=== PATIENT | male | born 1950 | race American Indian/Alaskan Native ===

== ENCOUNTER 2017-07-14 12:54 | Inpatient (IN) | payer OTHER ==
[2017-07-14] MEDS ORDERED: Sodium Chloride 0.9% 1,000 ML IV ONE (13:15)
[2017-07-14 13:31] LABS: RBC URINE < 1 /hpf (0-3); URINE BILIRUBIN NEGATIVE (NEGATIVE); URINE BLOOD NEGATIVE (NEGATIVE); URINE COLOR Yellow (YELLOW); URINE GLUCOSE (UA) NORMAL (Normal); URINE KETONE NEGATIVE (NEGATIVE); URINE LEUKOCYTE ESTERASE 1+ Leu/uL (Negative); URINE PROTEIN NEGATIVE (NEGATIVE); URINE UROBILINOGEN NORMAL mg/dL (0.2-1.0)
[2017-07-14 13:33] LABS: WBC URINE 3 /hpf (0-5)
[2017-07-14 13:36] LABS: BASO # 0.1 K/uL (0.0-0.2); BASO % 1.4 % (0.0-2.0); EOS # 0.1 K/uL (0.0-0.7); EOS % 2.3 % (0.0-4.0); HEMATOCRIT 37.2 % (35.0-51.0); LYMPH # 0.8 K/uL (1.0-4.3); LYMPH % 17.8 % (20.0-40.0); MEAN CELL VOLUME 92.7 fL (80.0-94.0); MEAN CORPUSCULAR HEMOGLOBIN 29.8 pg (27.0-31.0); MEAN CORPUSCULAR HGB CONC 32.2 g/dL (33.0-37.0); MEAN PLATELET VOLUME 8.2 fL (7.2-11.7); MONO # 0.5 K/uL (0.0-0.8); MONO % 10.6 % (0.0-10.0); RED CELL DISTRIBUTION WIDTH 13.8 % (11.5-14.5); WHITE BLOOD COUNT 4.3 K/uL (4.8-10.8)
[2017-07-14 14:05] LABS: ALCOHOL SERUM < 10 mg/dl (0-10); ALKALINE PHOSPHATASE 60 U/L (38-126); ALT/SGPT 52 U/L (21-72); AST/SGOT 42 U/L (17-59); BILIRUBIN,TOTAL 0.5 mg/dL (0.2-1.3); BLOOD UREA NITROGEN 12 mg/dL (9-20); CALCIUM 8.6 mg/dl (8.6-10.4); CARBON DIOXIDE 33 mmol/L (22-30); CHLORIDE 99 mmol/L (98-107); GFR AFRICAN-AMERICAN > 60; GLUCOSE,RANDOM 93 mg/dL (75-110); SODIUM 138 mmol/L (132-148)
--- NOTE | 2017-07-14 14:54 | C.PDOC ---
History Of Present Illness 66 year old male presents to ED requesting heroin detox. Pt was prescreened. He states he typically uses 5 bags of heroin intranasally daily. He denies physical complaints or SI/HI. Time Seen by Provider: 07/14/17 13:04 Chief Complaint (Nursing): Substance Abuse History Per: Patient History/Exam Limitations: no limitations Onset/Duration Of Symptoms: Persistent Suicide/Self Injury Attempted (Context): None Modifying Factor(s): Narcotics Severity: Moderate Associated Symptoms: denies: Suicidal Thoughts, Suicidal Plan Involuntary Hold By: None Additional History Per: Patient Past Medical History Reviewed: Historical Data, Nursing Documentation, Vital Signs Vital Signs: Last Vital Signs Temp 98.3 F 07/18/17 09:00 Pulse 88 07/18/17 09:00 Resp 19 07/18/17 09:00 BP 104/64 07/18/17 09:00 Pulse Ox 99 07/18/17 09:00 Surgical History: Tonsillectomy ( A CHILD) Family History: States: No Known Family Hx - Social History Hx Alcohol Use: Yes Hx Substance Use: Yes Review Of Systems Except As Marked, All Systems Reviewed And Found Negative. Constitutional: Negative for: Fever, Chills Cardiovascular: Negative for: Chest Pain, Palpitations Respiratory: Negative for: Shortness of Breath Gastrointestinal: Negative for: Nausea, Vomiting, Abdominal Pain Psych: Positive for: Other (heroin dependence). Negative for: Suicidal ideation Physical Exam - Physical Exam Appears: Well, Non-toxic, No Acute Distress Skin: Normal Color, Warm, Dry Eye(s): bilateral: Normal Inspection Oral Mucosa: Moist Cardiovascular: Rhythm Regular Respiratory: Normal Breath Sounds, No Rales, No Rhonchi, No Wheezing Extremity: Normal ROM Neurological/Psych: Oriented x3 Gait: Steady ED Course And Treatment - Laboratory Results Result Diagrams: 07/14/17 13:32 07/14/17 13:32 O2 Sat by Pulse Oximetry: 100 (RA) Pulse Ox Interpretation: Normal Progress Note: Blood work, UA, UDS ordered and reviewed. 2:55pm- Patient medically cleared. Accepted for detox admission by Dr. Epps. Disposition - Disposition Disposition: HOSPITALIZED Disposition Time: 15:02 Condition: STABLE - Clinical Impression Clinical Impression: Heroin dependence - Scribe Statement The provider has reviewed the documentation as recorded by the Juan Jose Austin All medical record entries made by the Scribe were at my direction and personally dictated by me. I have reviewed the chart and agree that the record accurately reflects my personal performance of the history, physical exam, medical decision making, and the department course for this patient. I have also personally directed, reviewed, and agree with the discharge instructions and disposition. Decision To Admit - Pt Status Changed To: Hospital Disposition Of: Inpatient - Admit Certification Admit to Inpatient:: After my assessment, the patient will require hospitalization for at least two midnights. This is because of the severity of symptoms shown, intensity of services needed, and/or the medical risk in this patient being treated as an outpatient. - InPatient: Physician Admission Certification: I certify that this patient requires 2 or more midnights of care for the following reason:: see notes - . Bed Request Type: Detox Admitting Physician: Juan Epps Patient Diagnosis: Heroin dependence
--- NOTE | 2017-07-14 15:33 | PCM.BM ---
<Sofiya Tello - Last Filed: 07/14/17 15:32> Treatment Plan Problems - Problems identified on initial assessmt potiential for opiate withdrawal Date Initiated: 07/14/17 Time Initiated: 15:32 Assessment reference: NA Status: Active Treatment assets and liabiliti Patient Assests: ADL independent Patient Liabilities: substance abuse - Milieu Protocol Maintain good personal hygiene: daily Encourage regular showers, daily Remind patient to perform daily oral care, daily Assist patient to perform ADL's Maintain personal safety: every shift Educate patient to report safety concerns to staff, every shift Monitor environment for contraband/sharps Medication safety: Monitor for expected outcome, potential side effects: every shift, Assess barriers to learning: every shift, Assess readiness for medication education: every shift <Christi Garcia - Last Filed: 07/17/17 11:53> Family Contact Family involvement: Kenyliy/SO not involved Family contact: Patient declines to allow family contact at present - Goals for Treatment Patient goals for treatment: Complete detox and transition to o/p so he can continue to care for his 8 cats. Discharge/Continuing Care - Education Needs Education Needs: Patient Medication, Patient Diagnosis/Disease Process, Patient Coping Skills, Patient Anger Management skills, Patient Placement options, Patient Community resources - Discharge Discharge Criteria: Free of agitation, No longer exhibiting s/s of withdrawal, Reduction of target symptoms Discharge to:: With Family - Treatment Team Participation Patient/Family/SO Statement: 07/17/17 11:53 "I can do outpatient...that I can do..." Discussed with Family/SO: No Was Patient/Family/SO present at Treatment Team Meeting: Yes
[2017-07-14] MEDS ORDERED: Aluminum Hydroxide/Magnesium Hydroxide Susp (30 mL) PO PRN (18:18)
[2017-07-14] MEDS ORDERED: Buprenorphine Hydrochloride 2 mg SL ONE ×2 (21:31→22:38)
--- NOTE | 2017-07-15 07:29 | PCM.PSYCH ---
Initial Psychiatric Evaluation - Initial Psychiatric Evaluation Type of Admission: Voluntary Legal Status: Capacity Chief Complaint (in patient's own words): I am withdrawing from heroin.' History of Present Illness and Precipitating Events: Pt is a 66 year old, male, with h/o opioid use came to the ED requesting opioid detox. Patient reports a long history of abusing heroin. As per the ED charts, pt started abusing heroin at age of 17. Pt reports sniffing 5-6 bags of heroin a day and has been using for a total of 50 years. Pt reports 1 prior detox 4 years ago at [facility] and was sober approx 1 week after discharge. Pt reports one prior overdose in December 2016 where he received Narcan. However, he denies any past psychiatric history. He reports withdrawal symptoms including anxiety, joint pains, headaches, sweating and cramps. However, he denies any feelings of hopelessness and helplessness, or any suicidal ideation or homicidal ideation. He denies any psychotic symptoms including any auditory or visual hallucinations or any delusions. He denies any other substance abuse. PMHx: None reported Current Medications: Active Medications Generic Name Dose Route Start Last Admin Trade Name Freq PRN Reason Stop Dose Admin Al Hydrox/Mg Hydrox/Simethicone 30 ml 07/14/17 18:18 Maalox 30 Ml PO TID PRN Indigestion / Heartburn Clonidine HCl 0.1 mg 07/14/17 18:18 Catapres PO Q8 PRN COWS Score More or Equal to 5 Hydroxyzine HCl 25 mg 07/14/17 17:32 Atarax PO Q6 PRN Anxiety Loperamide HCl 2 mg 07/14/17 18:18 Imodium PO Q8 PRN Diarrhea Ondansetron HCl 4 mg 07/14/17 18:18 Zofran Tab PO Q8 PRN Nausea/Vomiting Trazodone HCl 50 mg 07/14/17 17:31 Desyrel PO HS PRN insomnia Past Psychiatric History - Past Psychiatric History Previous Treatment History: Inpatient Pertinent Medical Hx (Current Medical&Sleep Prob, Allergies): Allergies Allergy/AdvReac Type Severity Reaction Status Date / Time No Known Allergies Allergy Unverified 07/14/17 13:04 No Known Home Med 07/14/17 Review of Systems - Review of Systems All systems: reviewed and no additional remarkable complaints except - Psychiatric Psychiatric: Anxiety, Irritability Mental Status Examination - Personal Presentation Personal Presentation: Looks stated age - Affect Affect: Constricted - Motor Activity Motor Activity: Calm - Reliability in Providing Information Reliability in Providing Information: Good - Speech Speech: Organized - Mood Mood: Anxious - Formal Thought Process Formal Thought Process: No Impairment - Obsessions/Compulsions Obsessions: No Compulsions: No - Cognitive Functions Orientation: Person, Place, Situation, Time Sensorium: Alert Attention/Concentration: Attentive Abstract Thinking: [place] Estimate of Intelligence: Below average Judgement: Imparied, as evidence by: Poor judgement, Intact, as evidence by: Insight regarding need for hospitalization - Risk Risk: Withdrawal, Diminished functioning - Limitations Limitations: Living alone DSM 5 DX - DSM 5 DSM 5 Diagnosis: Opioid use disorder severe Opioid withdrawal - Recommended/Plan of Treatment Treatment Recommendations and Plan of Treatment: Opioid use disorder severe CBT Psychoeducation Supportive therapy, individual therapy Use [facility] for abstinence Opioid withdrawal CBT Psychoeducation Supportive therapy, individual therapy Clonidine when necessary Subutax taper Trazodone 50 mg Hydroxyzine 25 mg prn PRN meds - Smoking Cessation Smoking Cessation Initiated: No
[2017-07-15] MEDS: Buprenorphine Hydrochloride 2 mg SL SCH (11:04)
--- NOTE | 2017-07-16 09:11 | PCM.PYCHPN ---
Psychiatric Progress Note - Psychiatric Progress Note Patient seen today, length of contact: 16 min Patient Chief Complaint: I am withdrawing from heroin.' Problems Identified/Issues Discussed: Patient seen and evaluated, chart reviewed and discussed with the nurse. Staff reports pt remained calm and cooperative and there were no acute events. Patient still reports withdrawal symptoms including nausea, headaches, cramps and sweating. He reports irritable mood but denies any feelings of hopelessness and helplessness. He denies any SI/HI/AVH. He is taking medication and denies any side effects. He needs more time for stabilization. Supportive therapy and psychoeducation were given. Medication Change: Yes (subtex taper) Medical Record Reviewed: Yes Mental Status Examination - Cognitive Function Orientation: Person, Place, Situation, Time Memory: Intact Attention: WNL Concentration: Poor Association: WNL Fund of Knowledge: Poor - Mood Mood: Anxious - Affect Affect: Constricted - Speech Speech: Soft - Formal Thought Process Formal Thought Process: No Impairment - Suicidal Ideation Suicidal Ideation: No - Homicidal Ideation Homicidal Ideation: No Goal/Treatment Plan - Goal/Treatment Plan Need for Continued Stay: Severe depression anxiety, Severe functional impairment Progress Toward Problem(s) and Goals/Treatment Plan: Opioid use disorder severe CBT Psychoeducation Supportive therapy, individual therapy Use [place] for abstinence Opioid withdrawal CBT Psychoeducation Supportive therapy, individual therapy Clonidine when necessary Subutax taper Trazodone 50 mg Hydroxyzine 25 mg prn PRN meds - Smoking Cessation Smoking Cessation Initiated: No
[2017-07-16] MEDS: Buprenorphine Hydrochloride 2 mg SL SCH (09:24)
[2017-07-16] MEDS ORDERED: Magnesium Hydroxide Susp 30 ml UD PO ONE (20:28)
[2017-07-17] MEDS: Buprenorphine Hydrochloride 2 mg SL SCH (09:42)
--- NOTE | 2017-07-17 15:42 | CP.PCM.CON ---
History of Present Illness - History of Present Illness History of Present Illness: 66 year old homeless male patient seen at bedside for evaluation or right lower extremity erythema. Pt reports he has been 1 year prior which has resolved. Pt has no pedal pain at this time. Pt reports that swelling to the area at time of admission. Pt reports recent f/c/constipation,nausea, all associated with illicit drug withdraw, which has resolved a this time. Past Patient History - Past Medical History & Family History Past Medical History?: Yes - Past Social History Smoking Status: Light Smoker < 10 Cigarettes Daily - CARDIAC Hx Cardiac Disorders: No Hx Hypertension: No - PULMONARY Hx Respiratory Disorders: No Hx Tuberculosis: No - NEUROLOGICAL Hx Neurological Disorder: No Hx Seizures: No - ENDOCRINE/METABOLIC Hx Endocrine Disorders: No - HEMATOLOGICAL/ONCOLOGICAL Hx Blood Disorders: No Hx Cancer: No Hx Human Immunodeficiency Virus (HIV): No - MUSCULOSKELETAL/RHEUMATOLOGICAL Hx Musculoskeletal Disorders: No - GASTROINTESTINAL Hx Gastrointestinal Disorders: No - GENITOURINARY/GYNECOLOGICAL Hx Sexually Transmitted Disorders: No - PSYCHIATRIC Hx Substance Use: Yes - SURGICAL HISTORY Hx Surgeries: No - ANESTHESIA Hx Anesthesia: No Hx Anesthesia Reactions: No Hx Malignant Hyperthermia: No Meds Allergies/Adverse Reactions: Allergies Allergy/AdvReac Type Severity Reaction Status Date / Time No Known Allergies Allergy Unverified 07/14/17 13:04 - Medications Medications: Current Medications Al Hydrox/Mg Hydrox/Simethicone (Maalox 30 Ml) 30 ml PO TID PRN PRN Reason: Indigestion / Heartburn Buprenorphine HCl (Subutex) 4 mg SL DAILY SHAYNE PRN Reason: Taper Stop: 07/19/17 08:59 Last Admin: 07/17/17 09:42 Dose: 4 mg Clonidine HCl (Catapres) 0.1 mg PO Q8 PRN PRN Reason: COWS Score More or Equal to 5 Hydroxyzine HCl (Atarax) 25 mg PO Q6 PRN PRN Reason: Anxiety Loperamide HCl (Imodium) 2 mg PO Q8 PRN PRN Reason: Diarrhea Ondansetron HCl (Zofran Tab) 4 mg PO Q8 PRN PRN Reason: Nausea/Vomiting Trazodone HCl (Desyrel) 100 mg PO HS PRN PRN Reason: insomnia Physical Exam - Constitutional Appears: Well, Non-toxic, No Acute Distress - Extremities Exam Additional comments: Lower extremity focused examination: Vasc: DP/PT pulses palpable 1/4 B/L. Temperature gradient is warm to warm B/L, within normal limits. CFT < 3 sec to all digits. Pedal hair absent. Non-pitting pedal edema noted to perimalleolar region and extending to dorsum of midfoot B/ L. Tortuous proximal lower leg and thigh veins with tender medial knee AV fistula. Derm: Right lower extremity distal 1/3 leg erythema on dependency with rubor recurrent on dependency. No callor to area of erythema. No open lesions or wounds. Bilateral acral skin xerosis. No clinical suspicion of infection Neuro: Protective sensation grossly intact B/L - Neurological Exam Neurological exam: Alert, Oriented x3 - Psychiatric Exam Psychiatric exam: Normal Affect, Normal Mood Results - Vital Signs Recent Vital Signs: Last Vital Signs Temp 98.2 F 07/17/17 13:00 Pulse 68 07/17/17 13:00 Resp 18 07/17/17 13:00 BP 96/65 L 07/17/17 13:00 Pulse Ox 99 07/17/17 13:00 - Labs Result Diagrams: 07/14/17 13:32 07/14/17 13:32 Labs: Laboratory Results - last 24 hr 07/17/17 07:39 POC Glucose (mg/dL) 87 Assessment & Plan - Assessment and Plan (Free Text) Assessment: 66 year old male patient with right lower vasculitis and venous insufficiency. 2 ) right knee AV fistula Plan: Pt seen and evaluated. Discussed with attending, Dr. Espinoza. Pt is afebrile absent leukocytosis. Pt is stable, no pedal sources or signs of cellulits. Applied ABRAM compressive dressing to right lower leg. Recommending vascular evaluation. Pt is stable from Podiatry standpoint for discharge. - Date & Time Date: 07/17/17 Time: 19:10
[2017-07-18] MEDS: Buprenorphine Hydrochloride 2 mg SL SCH (09:12)
--- NOTE | 2017-07-18 09:41 | PCM.PYCHDC ---
Mental Status Examination - Mental Status Examination Orientation: Person, Place, Situation, Time Memory: Intact Mood: Anxious Affect: Constricted Speech: Appropriate Attention: WNL Concentration: WNL Association: WNL Fund of Knowledge: WNL Formal Thought Process: No Impairment Suicidal Ideation: No Current Homicidal Ideation?: No Discharge Summary - Discharge Note Consultations:: List each consultation separately and include: 1. Reason for request. 2. Findings. 3. Follow-up Summary of Hospital Course include:: 1. Description of specific treatment plan utilized for patients during their course of treatmen. 2. Summarize the time- course for resolution of acute symptoms and/or regressed behaviors. 3. Describe issues identified and worked on during hospitalization. 4. Describe medication utilized. 5. Describe medical problems identified and treated. 6. Reassessment of suicide risk Summary of Hospital Course: The pt was admitted and started on treatment with psychotherapy, support, psychoeducation and medications. MN and CBT used. The pt attended groups and activities, as well as milieu therapy. All the risks and benefits of medications are discussed and the patient understood and agreed. The pt improved with the treatments provided. After care discussed with the patient. - Final Diagnosis (DSM 5) Condition upon Discharge: GOOD DSM 5: Opioid use disorder severe Opioid withdrawal Disposition: HOME/ ROUTINE Follow-up Treatment Plan: Continue below medications after discharge. Follow after care plan as discussed. Use relapse prevention skills Return to ER or call 911 if suicidal, homicidal or symptoms relapse. Stay away from stress, alcohol and drugs. See primary doctor regularly and get labs. Prescriptions/Medication Reconciliation: traZODone [Desyrel] 100 mg PO HS PRN #30 tab PRN Reason: insomnia - Smoking Cessation Smoking Cessation Medication prescribed: No - Antipsychotic Medications Pt discharged on 2 or more routine antipsychotic medications: No
[2017-07-18 10:26] VITALS: BP 104/64; PULSE 88; RESP 19; TEMP 98.3
[2017-07-20 07:36] VITALS: O2SAT 100
== END 2017-07-18 10:00 | disposition home or self-care (01) | DRG 745 ==
LOC: C.ER 12:54 → C.9E 15:02 → C.7D 15:25
PROVIDERS: ADMIT Psychiatry & Neurology Psychiatry; ATTEND Psychiatry & Neurology Psychiatry
PROC: HZ2ZZZZ Detoxification Services for Substance Abuse Treatment (ICD-10-PCS; principal; 2017-07-14)
PROC: HZ52ZZZ Individual Psychotherapy for Substance Abuse Treatment, Cognitive-Behavioral (ICD-10-PCS; 2017-07-14)
PROC: HZ59ZZZ Individual Psychotherapy for Substance Abuse Treatment, Supportive (ICD-10-PCS; 2017-07-14)
PROC: HZ56ZZZ Individual Psychotherapy for Substance Abuse Treatment, Psychoeducation (ICD-10-PCS; 2017-07-14)
DX: F11.23 Opioid dependence with withdrawal (principal); I77.6 Arteritis, unspecified; I87.2 Venous insufficiency (chronic) (peripheral); Z59.0 Homelessness